=== PATIENT | female | born 1955 | race Two or more races ===

== ENCOUNTER → 2022-08-29 | Day surgery (SDC) | payer MEDICARE, OTHER ==
--- NOTE | 2022-09-04 08:59 | MM ---
Reason for Exam: Post Procedure Mammogram. Patient History: Menarche at age 16. First Full-Term at age 26. Postmenopausal. Risk Values: Anamika 5 year model risk: 1.7%. NCI Lifetime model risk: 5.6%. Tissue Density: Left: The breast tissue is heterogeneously dense. This may lower the sensitivity of mammography. Pathology Description: Location: 9 o'clock. Marker Left Behind. Needle Type: Mammotome Cores: 6 Gauge: 13 The procedure of ultrasound guided core biopsy was explained to the patient. Benefits, alternatives, and risks were discussed. An informed consent was then obtained. The patient was placed in supine positioning for imaging and for the procedure. The overlying skin was prepped and draped in usual sterile fashion. Lidocaine was used as anesthetic into the skin followed by 0.5% lidocaine/epinephrine into the subcutaneous tissue up to area of concern in the 9:00 left breast. Under ultrasound guidance, a 13-gauge vacuum-assisted mammotome Elite biopsy gun was used to obtain 6 core samples. Following this, a Hydromark coil clip was left in lesion. The patient tolerated the procedure well without any immediate complication. The patient was kept in the radiology department for short stay after the procedure and then discharged home in stable condition. Postprocedure mammogram: The patient was transferred to mammography for physician ordered post procedure mammogram for clip placement verification. The clip is at the site of mammographic mass. IMPRESSION: Successful, uncomplicated ultrasound guided core biopsy of suspicious area in the 9:00 left breast; full pathology results to follow. Pathology Results: Result: Malignant, Invasive ductal carcinoma. LEFT BREAST, NINE O'CLOCK, ULTRASOUND GUIDED NEEDLE CORE BIOPSY: Invasive poorly differentiated ductal carcinoma (Grade 3). See Surgical Pathology Cancer Case Summary. Overall Assessment: Malignant Assessment: MG diagnostic mammo LT wo CAD. - Left: Known biopsy proven malignancy, BI-RAD 6. Management: Surgical Consultation of the left breast. Electronically signed and approved by: Linsey Sosa M.D. Radiologist JENN
== END ==
LOC: RADUSWWP 12:24
PROVIDERS: ATTEND Surgery
DX: C50.912 Malignant neoplasm of unspecified site of left female breast (principal); Z78.0 Asymptomatic menopausal state
CPT/HCPCS: 88305; 88342; 88341; 77065; 19083; A4648

== ENCOUNTER → 2022-09-05 | Outpatient (CLI) | payer MEDICARE, OTHER ==
--- NOTE | 2022-09-05 12:54 | P.GSHP ---
History of Present Illness H&P Date: 09/05/22 Chief Complaint: left breast poorly differentiated invasive cancer Cherelle is a 67 year old female seen with her sister regarding a biopsy proven left breast invasive cancer. She had a routine mammogram which led to the following work-up. She had a left breast mammogram on 07-11-22, and an ultrasound done on 08-08-22 this led to a left breast core biopsy. The patient does not feel anything of concern in either breast. She is not complaining of any nipple discharge or skin changes. She's not had any recent trauma or infection in the breast. She has never had surgery on her breast. Her last mammogram was 12 years ago. Caffeine:occasional nicotine: none chocolate: none BCP: none hormones: none Family History: none Hormonal History: menarche: 15 , breast fed: yes, age at first : 26 menopause: 54 hormones: none Surgical History: none Medical History: hypothyroid diabetic metformin HTN Social History: nicotine: none alcoholL none drugs: none - Constitutional Constitutional: Denies chills, Denies fever - EENT Eyes: denies blurred vision, denies pain Ears: deny: decreased hearing, tinnitus Ears, nose, mouth and throat: Denies headache, Denies sore throat - Breasts Breasts: bilateral: as per HPI - Cardiovascular Cardiovascular: Denies chest pain, Denies shortness of breath - Respiratory Respiratory: Denies cough, Denies 7 - Gastrointestinal Gastrointestinal: Denies abdominal pain, Denies diarrhea, Denies nausea, Denies vomiting - Genitourinary (Female) Genitourinary: Denies dysuria, Denies hematuria - Menstruation Menstruation: Reports postmenopausal - Musculoskeletal Musculoskeletal: Denies myalgias - Integumentary Integumentary: Denies pruritus, Denies rash - Neurological Neurological: Denies numbness, Denies weakness - Psychiatric Psychiatric: Denies anxiety, Denies depression - Endocrine Endocrine: Reports as per HPI - Hematologic/Lymphatic Comment: none - Allergic/Immunologic Allergic/Immunologic: Reports as per HPI Past Medical History Past Medical History: Diabetes Mellitus, Hypertension, Thyroid Disorder History of Any Multi-Drug Resistant Organisms: None Reported Past Surgical History: No Surgical Hx Reported Additional Past Surgical History / Comment(s): colonoscopy 2020? Past Anesthesia/Blood Transfusion Reactions: No Reported Reaction Past Psychological History: No Psychological Hx Reported Smoking Status: Never smoker Past Alcohol Use History: None Reported Past Drug Use History: None Reported Medications and Allergies Home Medications Medication Instructions Recorded Confirmed Type Atorvastatin [Lipitor] 40 mg PO HS 08/14/22 09/05/22 History Levothyroxine Sodium [Synthroid] 100 mcg PO DAILY 08/14/22 09/05/22 History glyBURIDE [Diabeta] 2.5 mg PO AC-BRKFST 08/14/22 09/05/22 History lisinopriL [Prinivil] 10 mg PO DAILY 08/14/22 09/05/22 History metFORMIN HCL [Glucophage] 1,000 mg PO BID 08/14/22 09/05/22 History Allergies Allergy/AdvReac Type Severity Reaction Status Date / Time No Known Allergies Allergy Verified 09/05/22 11:56 Surgical - Exam - General no distress - Eyes normal ocular movement - ENT no hearing loss - Neck trachea midline - Respiratory normal respiratory effort, clear to auscultation - Cardiovascular Rhythm: regular Heart Sounds: normal: S1, S2 - Abdomen Abdomen: soft, non tender, no guarding, no rigid, no rebound - Integumentary normal turgor - Neurologic no disoriented, no combative - Musculoskeletal normal gait - Psychiatric oriented to time, oriented to person, oriented to place, speech is normal, memory intact Breast Exam: BRA: 32 C inspection: bilateral grade 2 ptosis palpation: right breast: Multi-positional exam fibrocystic changes no dominant masses or nodules of concern Right axilla: No adenopathy of concern Left breast: Ecchymosis at biopsy site fullness in the 11 o'clock position in the periareolar region no discrete dominant masses or nodules of concern otherwise Left axilla: No adenopathy of concern Results Mammogram reviewed personally with Dr. Sosa Assessment and Plan Assessment: Impression: Invasive ductal carcinoma left breast ER/MA negative HER-2 positive grade 3 Dense breast Plan: Bilateral breast MRI Appointment medical oncology secondary to HER-2 positive Presentation of case at tumor board The patient is seen here with her sister. CC: DR. Murray
== END ==
LOC: WWCWWP 11:30
PROVIDERS: ATTEND Surgery
DX: D05.12 Intraductal carcinoma in situ of left breast (principal); E03.9 Hypothyroidism, unspecified; E11.9 Type 2 diabetes mellitus without complications; I10 Essential (primary) hypertension; Z79.84 Long term (current) use of oral hypoglycemic drugs; Z80.3 Family history of malignant neoplasm of breast; Z79.890 Hormone replacement therapy

== ENCOUNTER → 2022-09-09 | Outpatient (CLI) | payer MEDICARE, OTHER ==
--- NOTE | 2022-09-12 13:15 | BMR ---
EXAMINATION TYPE: MR breast BILAT wo/w con DATE OF EXAM: 09/09/2022 COMPARISON: Outside screening mammogram April 11, 2022 BI-RADS 0. Diagnostic left breast mammogram July 11, 2022 BI-RADS 0. Left breast diagnostic ultrasound August 08, 2022 BI-RADS 4. HISTORY: Malignant neoplasm of breast invasive poorly differentiated ductal carcinoma grade 3 on ultr asound guided left breast biopsy August 29, 2022. TECHNIQUE: A series of fat and water weighted images in the long and short axis views of both breasts are obtained in conjunction with dynamic contrast MRI with subtraction technique. The patient was i njected with 6.5 mL intravenous Gadavist gadolinium contrast. Three-dimensional and additional post processing imaging is created on independent workstation and reviewed during official interpretation of this study. FINDINGS: Heterogeneously dense fibroglandular tissue is redemonstrated bilaterally. Benign-appearing bilateral axillary lymph nodes are seen. No concerning axillary adenopathy. No suspicious focal flui d collection or cystic change in either breast. Dynamic postcontrast imaging shows minimal background enhancement bilaterally. With regards to the right breast there is no abnormal skin thickening seen. No pathologic enhancement or enhancing masses are identified. The chest wall is intact. With regards to the left breast there is artifact from biopsy clip seen image 106 series 401. There i s focal enhancing oval-shaped mass along the lateral aspect of the biopsy clip with circumscribed mar gins measuring 10 x 4 mm image 633 series 701 at approximate 9:00 position left breast corresponding to biopsy-proven malignancy. Computer gives measurements of 7 x 4 x 7 mm with dynamic postcontrast im aging showing majority of benign gradual type enhancement. Slightly larger measurements are present o n corresponding ultrasound No additional enhancing masses or suspicious enhancement in the left breas t. No skin thickening is seen. Chest wall is intact. IMPRESSION: Biopsy-proven malignancy in the left breast as detailed above. No multicentric disease or MRI evidence for invasive malignancy in the right breast. No abnormal adenopathy seen. BI-RADS 2 benign findings right breast BI-RADS 6 biopsy-proven malignancy left breast Recommendation:. Appropriate surgical and oncologic management of newly diagnosed left breast efra ruiz
== END | disposition home or self-care (01) ==
LOC: RADMRIMAIN 21:15
PROVIDERS: ATTEND Surgery
DX: C50.312 Malignant neoplasm of lower-inner quadrant of left female breast (principal)
CPT/HCPCS: C8908; A9585; 77049

== ENCOUNTER → 2022-10-04 | Outpatient (CLI) | payer MEDICARE, OTHER ==
--- NOTE | 2022-10-04 11:17 | P.PN ---
Subjective Progress Note Date: 10/04/22 left breast poorly differentiated invasive cancer Cherelle is a 67 year old female seen with her sister regarding a biopsy proven left breast invasive cancer. She had a routine mammogram which led to the following work-up. She had a left breast mammogram on 07-11-22, and an ultrasound done on 08-08-22 this led to a left breast core biopsy. The patient does not feel anything of concern in either breast. She is not complaining of any nipple discharge or skin changes. She's not had any recent trauma or infection in the breast. She has never had surgery on her breast. Her last mammogram was 1 years ago. She had a breast MRI performed on 5822. This revealed no lesions of concern in the right breast. In the left breast there was a focal enhancing mass along the lateral aspect of the biopsy clip with circumscribed margins measuring 10 x 4 mm. This was at the approximate 9 o'clock position corresponding to biopsy- proven malignancy. Her case was presented at tumor board on 5922. She also saw Dr. Jaime Jama at his [place] office and no neoadjuvant treatment was recommended. The recommendation was for a lumpectomy with axillary node biopsy. Caffeine:occasional nicotine: none chocolate: none BCP: none hormones: none Family History: none Hormonal History: menarche: 15 , breast fed: yes, age at first : 26 menopause: 54 hormones: none Surgical History: none Medical History: hypothyroid diabetic metformin HTN Social History: nicotine: none alcoholL none drugs: none - Constitutional Constitutional: Denies chills, Denies fever - EENT Eyes: denies blurred vision, denies pain Ears: deny: decreased hearing, tinnitus Ears, nose, mouth and throat: Denies headache, Denies sore throat - Breasts Breasts: bilateral: as per HPI - Cardiovascular Cardiovascular: Denies chest pain, Denies shortness of breath - Respiratory Respiratory: Denies cough - Gastrointestinal Gastrointestinal: Denies abdominal pain, Denies diarrhea, Denies nausea, Denies vomiting - Genitourinary (Female) Genitourinary: Denies dysuria, Denies hematuria - Menstruation Menstruation: Reports postmenopausal - Musculoskeletal Musculoskeletal: Denies myalgias - Integumentary Integumentary: Denies pruritus, Denies rash - Neurological Neurological: Denies numbness, Denies weakness - Psychiatric Psychiatric: Denies anxiety, Denies depression - Endocrine Endocrine: Reports as per HPI - Hematologic/Lymphatic Comment: none - Allergic/Immunologic Allergic/Immunologic: Reports as per HPI Past Medical History Past Medical History: Diabetes Mellitus, Hypertension, Thyroid Disorder History of Any Multi-Drug Resistant Organisms: None Reported Past Surgical History: No Surgical Hx Reported Additional Past Surgical History / Comment(s): colonoscopy 2020? Past Anesthesia/Blood Transfusion Reactions: No Reported Reaction Past Psychological History: No Psychological Hx Reported Smoking Status: Never smoker Past Alcohol Use History: None Reported Past Drug Use History: None Reported Medications and Allergies Home Medications Medication Instructions Recorded Confirmed Type Atorvastatin [Lipitor] 40 mg PO HS 08/14/22 09/05/22 History Levothyroxine Sodium [Synthroid] 100 mcg PO DAILY 08/14/22 09/05/22 History glyBURIDE [Diabeta] 2.5 mg PO AC-BRKFST 08/14/22 09/05/22 History lisinopriL [Prinivil] 10 mg PO DAILY 08/14/22 09/05/22 History metFORMIN HCL [Glucophage] 1,000 mg PO BID 08/14/22 09/05/22 History Allergies Allergy/AdvReac Type Severity Reaction Status Date / Time No Known Allergies Allergy Verified 09/05/22 11:56 Objective - Constitutional General appearance: Present: cooperative - EENT Eyes: Present: EOMI ENT: Present: hearing grossly normal - Neck Neck: Present: normal ROM - Respiratory Respiratory: bilateral: CTA - Cardiovascular Rhythm: regular Heart sounds: normal: S1, S2 - Gastrointestinal General gastrointestinal: Present: soft - Integumentary Integumentary: Present: normal turgor - Musculoskeletal Musculoskeletal: Present: gait normal - Psychiatric Psychiatric: Present: A&O x's 3, appropriate affect, intact judgment & insight - Additional findings Additional findings: Breast Exam: BRA: 32 C inspection: bilateral grade 2 ptosis palpation: right breast: Multi-positional exam fibrocystic changes no dominant masses or nodules of concern Right axilla: No adenopathy of concern Left breast: Ecchymosis at biopsy site fullness in the 11 o'clock position in the periareolar region no discrete dominant masses or nodules of concern otherwise Left axilla: No adenopathy of concern Assessment and Plan Assessment: Impression: Invasive ductal carcinoma left breast ER/CO negative HER-2 positive grade 3 Dense breast Plan: Bilateral breast MRI reviewed Appointment medical oncology secondary to HER-2 positive; done and no neoadjuvant recommended Presentation of case at tumor board done 09-10-[address] Murray left breast localization lumpectomy, left breast sentinel node injection, left breast sentinel node biopsy, possible left axillary node dissection, possible onco-plastic tissue transfer The patient is seen here with her sister. Risks and benefits of the surgical procedure discussed with the patient and her sister. Risks include but are not limited to bleeding, infection, reaction to the anesthetic. If the section were to have positive margins then further resection may be necessary. We have discussed the option of mastectomy versus lumpectomy plus radiation. At this time the patient would prefer lumpectomy. We have also discussed sentinel node biopsy and axillary node dissection. Risks include but are not limited to bleeding, infection, reaction to the anesthetic. Possible lymphedema or decreased sensation to the inner arm. Additionally possible injury to the thoracodorsal and long thoracic nerves which could result in wing scapula. The patient and her sister understand and wish to proceed. CC: DR. Murray
== END ==
LOC: WWCWWP 10:20
PROVIDERS: ATTEND Surgery
DX: C50.912 Malignant neoplasm of unspecified site of left female breast (principal); E11.9 Type 2 diabetes mellitus without complications; I10 Essential (primary) hypertension; E03.9 Hypothyroidism, unspecified; Z79.84 Long term (current) use of oral hypoglycemic drugs; Z17.1 Estrogen receptor negative status [ER-]

== ENCOUNTER → 2022-10-04 | Outpatient (CLI) | payer MEDICARE, OTHER ==
--- NOTE | 2022-10-04 10:35 | XR ---
EXAMINATION TYPE: XR chest 2V DATE OF EXAM: 10/04/2022 COMPARISON: NONE HISTORY: Shortness of breath TECHNIQUE: Frontal and lateral views of the chest are obtained. FINDINGS: Scattered senescent parenchymal changes noted. Hyperinflation compatible with COPD. No evidence for infiltrate. No evidence for atelectasis. Heart size is stable. Mediastinal structures are stable and grossly unremarkable. No evidence for hilar prominence. Degenerative changes dorsal spine. IMPRESSION: 1. No evidence for acute pulmonary disease.
== END | disposition home or self-care (01) ==
LOC: RADXRMAIN 09:42
PROVIDERS: ATTEND Family Medicine
DX: Z01.818 Encounter for other preprocedural examination (principal); R06.02 Shortness of breath
CPT/HCPCS: 71046

== ENCOUNTER → 2022-10-04 | Outpatient (CLI) | payer MEDICARE, OTHER ==
[2022-10-04 16:48] LABS: African American GFR (CKD) 59.7 (60.0-200.0); Albumin 4.4 g/dL (3.8-4.9); Albumin/Globulin Ratio 1.76 (1.60-3.17); Anion Gap 13.9 mmol/L (10.00-18.00); BUN/Creat Ratio 14.73 Ratio (12.00-20.00); Blood Urea Nitrogen 16.2 mg/dL (9.0-27.0); Calcium 9.7 mg/dL (8.7-10.3); Carbon Dioxide 24.1 mmol/L (20.0-27.5); Globulin 2.5 g/dL (1.6-3.3); Non-African American GFR(CKD) 51.5 (60.0-200.0); Potassium 4.6 mmol/L (3.5-5.5); Total Bilirubin 0.2 mg/dL (0.30-1.20); Total Protein 6.9 g/dL (6.2-8.2)
[2022-10-04 16:50] LABS: INR 0.9 (0.90-1.11); Prothrombin Time 10.2 sec (9.9-11.9)
== END | disposition home or self-care (01) ==
LOC: LABWHC1 09:57
PROVIDERS: ATTEND Family Medicine
DX: Z01.812 Encounter for preprocedural laboratory examination (principal); C50.912 Malignant neoplasm of unspecified site of left female breast; E11.65 Type 2 diabetes mellitus with hyperglycemia
CPT/HCPCS: 36415; 80053; 85027; 85610

== ENCOUNTER 2022-10-08 12:38 | Day surgery (SDC) | payer MEDICARE, OTHER ==
[2022-10-07 09:23] VITALS: BMI 23.3
[~2022-10-08 12:38] MED LIST: ALPRAZolam 0.25 MG TAB PO PRN; DEXAMETHASONE SOD PHOSPHATE 4 MG/ML 1 ML VIAL IV ONE; HEPARIN SODIUM,PORCINE/PF 5,000 UNIT/0.5 ML SYRINGE SQ PRN; HYDROmorphone 0.5 MG/0.5 ML SYRINGE IVP PRN; LACTATED RINGERS 1,000 ML IV SCH; ONDANSETRON 4 MG/2 ML VIAL IVP ONE; Pre Op ABX Message 1 EACH MISC MISCELLANE ONE
[2022-10-08 13:03] VITALS: RESP 16
[2022-10-08 13:25] LABS: Glucose,Whole Blood 127 mg/dL (70-110)
[2022-10-08 14:03] LABS: HCT 34.9 % (34.0-46.0); HGB 10.9 gm/dL (11.4-16.0); MCH 29.2 pg (25.0-35.0); MCHC 31.3 g/dL (31.0-37.0); MCV 93.2 fL (80.0-100.0); Mean Platelet Volume 8.4; Platelet Count 166 k/uL (150-450); RBC 3.75 m/uL (3.80-5.40); WBC 7.3 k/uL (3.8-10.6)
[2022-10-08] MEDS ORDERED: LIDOCAINE 1% INJ 10MG/ML (20 ML MDV) SQ ONE ×2 (14:25→16:29)
[2022-10-08] MEDS ORDERED: SUCCINYLCHOLINE CHLORIDE 200 MG/10 ML VIAL IV ONE (14:53)
[2022-10-08] MEDS ORDERED: PROPOFOL 10 MG/ML 20 ML VIAL IV ONE (14:53)
[2022-10-08] MEDS ORDERED: KETOROLAC 15 MG/ML 1 ML VIAL ONE (14:53)
[2022-10-08] MEDS ORDERED: LIDOCAINE 2% INJ 20 MG/ML (2 ML VIAL) ONE (14:53)
[2022-10-08] MEDS ORDERED: fentaNYL (PF) 50 MCG/ML 2 ML AMP ONE (14:53)
[2022-10-08] MEDS ORDERED: MIDAZOLAM 2 MG/2 ML VIAL ONE (14:53)
--- NOTE | 2022-10-08 15:05 | P.NAPBC ---
NAPBC Queries - NAPBC Queries Was patient's case review presented at [facility] tumor board? If no, comment.: Yes Was patient's pathology reviewed at [facility]? If no, comment.: Yes Was breast conservation surgery offered? If no, comment.: Yes Was sentinel node biopsy offered? If no, comment.: Yes Was diagnosis confirmed by percutaneous core biopsy? If no, comment.: Yes Is patient mastectomy patient?: No Was a preop referral to reconstructive surgeon offered?: No Clinical Stage: [id number] left breast invasive ductal cancer
--- NOTE | 2022-10-08 15:12 | NM ---
EXAMINATION TYPE: NM sentinel node injection DATE OF EXAM: 10/08/2022 COMPARISON: 08/29/2022 CLINICAL INDICATION: Female, 67 years old with history of LEFT BREAST CA; TECHNIQUE AND FINDINGS: The procedure of sentinel lymph node injection was explained to the patient. The benefits, alternatives, and risks were discussed. An informed consent was then obtained. Overlying skin is cleaned with sterile alcohol. Following this, 514 uCi Tc99m Tilmanocept was inject ed in the upper outer aspect of the left nipple intradermally. The patient tolerated the procedure well without any immediate complication. The patient was kept in the radiology department for short stay after the procedure and then taken to surgery for surgical p rocedure what is presumed intraoperative gamma probe will be used for sentinel lymph node detection. IMPRESSION: Left breast radiotracer injection for sentinel node localization as above.
[2022-10-08] MEDS ORDERED: BUPIVACAINE (PF) 0.5% 30 ML VIAL SQ ONE (16:23)
--- NOTE | 2022-10-08 16:29 | P.OP ---
Date of Procedure: 10/08/22 Preoperative Diagnosis: Left breast invasive ductal carcinoma Postoperative Diagnosis: Same Procedure(s) Performed: Left breast needle localization lumpectomy, bronchoplasty tissue transfer 23 cm, sentinel node biopsy Anesthesia: ENRIQUE Surgeon: Kimberley Vera Estimated Blood Loss (ml): 10 IV fluids (ml): 600 Pathology: other (Breast tissue, axillary node) Condition: stable Disposition: same day Indications for Procedure: Left breast invasive ductal carcinoma Operative Findings: Fibrofatty breast tissue Description of Procedure: The patient is a 59-year-old female diagnosed with a left breast invasive ductal carcinoma. She was seen first in the radiology department where needle localization of the lesion was performed. The radioactive isotope was injected in the periareolar region on the left. The patient was then brought up to the operative suite. Following induction of anesthesia the neoprobe was used to interrogate the axilla and radioactivity was identified. The left breast and axilla were prepped and draped in a sterile fashion. Using the neoprobe to find the area of greatest radioactivity incision was made down to the radioactive lymph node. 2 sentinel nodes were identified and removed. The first one had a 10 second count of 1367, the second had a 10 second count of 1122. The background count was 5. The wound was well irrigated. The deep tissues were closed using 3-0 Vicryl suture. The skin was closed using 4-0 Monocryl. The area of the breast was approached. An incision was made and carried down to the shaft of the needle. Surrounding tissue was excised. The defect was 5 cm x 2 cm. The specimen was painted for orientation. Radiograph revealed the area of concern had been removed. A superior pillar 5 x 1 cm was performed, and inferior pillar 4 x 2 cm was performed. Total tissue transfer was 23 cm. After this titanium clips were placed and Surgicel in powder form was placed in the defect. Following this the subcutaneous tissue was closed using 3-0 Vicryl suture. This was followed by 4-0 Monocryl subcuticular closure. 20 mL of 1% lidocaine was injected into the area. Steri-Strips were applied. The patient tolerated procedure in stable condition. All instrument and sponge counts were correct at the end of the case.
[2022-10-08 16:49] VITALS: TEMP 97.4
[2022-10-08 17:08] LABS: Glucose,Whole Blood 163 mg/dL (70-110)
[2022-10-08 18:00] VITALS: BP 164/76; PULSE 72
--- NOTE | 2022-10-15 08:55 | MM ---
Pathology Description: Approach: Medial to Lateral Needle Type: 7 cm Kopan The procedure of needle localization with wire placement and than surgical excision was explained to the patient. Benefits, alternatives, and risks were discussed. An informed consent was then obtained. The shortest pathway for procedure was chosen. Shortest pathway was a medial approach. The overlying skin was prepped and draped in usual sterile fashion. Lidocaine was used as anesthetic into the skin and subcutaneous tissue up to the level of area of concern. A 7 cm Kopan's needle was used. It was placed via a medial approach under mammographic guidance. Subsequent 90 degrees mammogram show the needle to be in satisfactory position relative to the targeted area. At this point, wire was placed and the needle was withdrawn. The wire was fixed to patient's skin. Images were marked for surgeon. The patient tolerated the procedure well without any immediate complication. The patient was kept in the radiology department for short stay after the procedure and then taken to surgery for surgical excision. Targeted clip, mass, and wire are identified in specimen mammogram. The patient was kept in hospital for short stay after the procedure and then discharged home in stable condition. IMPRESSION: Successful, uncomplicated needle localization with wire placement and surgical excision of biopsy-proven medial left breast cancer. Full pathology results to follow. Pathology Results: Result: Malignant, Invasive ductal carcinoma. A. SENTINEL LYMPH NODE LEFT #1: Lymph node negative for metastasis. CK7 and SUSANNA immunoperoxidase stains performed on block A1 are confirmatory (controls appropriate). B. LEFT AXILLARY CONTENTS: Lymph node negative for metastasis, benign fibroadipose tissue and breast tissue with fibrocystic changes. C. SENTINEL LYMPH NODE LEFT #2: Benign breast tissue with fibrocystic changes including microcalcifications. No lymph node is identified. D. LEFT BREAST, LUMPECTOMY: Invasive poorly differentiated ductal carcinoma (Grade 3) and high grade DCIS, margins negative. See Surgical Pathology Cancer Case Summary. Overall Assessment: Malignant Management: Surgical Consultation of the left breast. Electronically signed and approved by: Linsey Sosa M.D. Radiologist
== END 2022-10-08 18:16 | disposition home or self-care (01) ==
LOC: OR 12:38
PROVIDERS: ATTEND Surgery
DX: C50.212 Malignant neoplasm of upper-inner quadrant of left female breast (principal); I10 Essential (primary) hypertension; E78.5 Hyperlipidemia, unspecified; E11.9 Type 2 diabetes mellitus without complications; E03.9 Hypothyroidism, unspecified; Z79.84 Long term (current) use of oral hypoglycemic drugs; Z79.890 Hormone replacement therapy; Z79.899 Other long term (current) drug therapy; Z78.0 Asymptomatic menopausal state
CPT/HCPCS: 19301; 14001; 38525; 38792; 85027; 88342; 88307; 88341; 76098; C1819; A9520; J2250; J0330; J1100; J2405; J2001 ×2; J3010; J1885; J2704; J1170

== ENCOUNTER → 2022-10-16 | Outpatient (CLI) | payer MEDICARE, OTHER ==
--- NOTE | 2022-10-16 11:21 | P.PN ---
Progress Note - Text Progress Note Date: 10/16/22 Cherelle is a 67 year old status post left breast lumpectomy and SNB on 10-08-22. The lesions was 8 mm invasive ductal poorly differentiated cancer. Margins were negative. Closest margin 2 mm from posterior margin 2 nodes (-) for caner. Examination: Lungs: Clear Heart: Regular rate and rhythm Incisions clean and dry Impression: Patient doing well Plan: Appointment radiation oncology Appointment medical oncology Follow-up here in 4 months CC: Dr. Dipak Stauffer
[2022-10-16 11:23] VITALS: BP 157/87; PULSE 75; RESP 16; TEMP 97.9
== END ==
LOC: WWCWWP 10:43
PROVIDERS: ATTEND Surgery
DX: Z90.12 Acquired absence of left breast and nipple (principal)

== ENCOUNTER → 2023-02-14 | Outpatient (CLI) | payer MEDICARE, OTHER ==
[2023-02-14 13:08] VITALS: BP 148/72; PULSE 69; RESP 17; TEMP 98.3
--- NOTE | 2023-02-14 13:14 | P.PN ---
Subjective Progress Note Date: 02/14/23 left breast poorly differentiated invasive cancer Cherelle is a 67 year old female seen with her sister regarding a biopsy proven left breast invasive cancer. She had a routine mammogram which led to the following work-up. She had a left breast mammogram on 07-11-22, and an ultrasound done on 08-08-22 this led to a left breast core biopsy. The patient does not feel anything of concern in either breast. She is not complaining of any nipple discharge or skin changes. She's not had any recent trauma or infection in the breast. She has never had surgery on her breast. Her last mammogram was 1 years ago. She had a breast MRI performed on 5822. This revealed no lesions of concern in the right breast. In the left breast there was a focal enhancing mass along the lateral aspect of the biopsy clip with circumscribed margins measuring 10 x 4 mm. This was at the approximate 9 o'clock position corresponding to biopsy- proven malignancy. ER (-), SC (-), HER-2 positive. Grade 3 invasive ductal carcinoma. Her case was presented at tumor board on 5922. She also saw Dr. Jaime Jama at his [place] office and no neoadjuvant treatment was recommended. The recommendation was for a lumpectomy with axillary node biopsy. She underwent a left breast lumpectomy and sentinel node biopsy on 6622. The lesion was an 8 mm invasive ductal poorly differentiated cancer. Margins were negative. 2 nodes were removed both negative for cancer. She has seen by Dr. Jaime Jama at [place] and she has not had any adjuvant treatment at this time. They have not seen a radiation oncologist. At this time the patient is not complaining of any new lumps masses or nodules of concern in either breast. Caffeine:occasional nicotine: none chocolate: none BCP: none hormones: none Family History: none Hormonal History: menarche: 15 , breast fed: yes, age at first : 26 menopause: 54 hormones: none Surgical History: Left breast lumpectomy and sentinel node biopsy Medical History: hypothyroid diabetic metformin HTN Social History: nicotine: none alcoholL none drugs: none - Constitutional Constitutional: Denies chills, Denies fever - EENT Eyes: denies blurred vision, denies pain Ears: deny: decreased hearing, tinnitus Ears, nose, mouth and throat: Denies headache, Denies sore throat - Breasts Breasts: bilateral: as per HPI - Cardiovascular Cardiovascular: Denies chest pain, Denies shortness of breath - Respiratory Respiratory: Denies cough - Gastrointestinal Gastrointestinal: Denies abdominal pain, Denies diarrhea, Denies nausea, Denies vomiting - Genitourinary (Female) Genitourinary: Denies dysuria, Denies hematuria - Menstruation Menstruation: Reports postmenopausal - Musculoskeletal Musculoskeletal: Denies myalgias - Integumentary Integumentary: Denies pruritus, Denies rash - Neurological Neurological: Denies numbness, Denies weakness - Psychiatric Psychiatric: Denies anxiety, Denies depression - Endocrine Endocrine: Reports as per HPI - Hematologic/Lymphatic Comment: none - Allergic/Immunologic Allergic/Immunologic: Reports as per HPI Past Medical History Past Medical History: Diabetes Mellitus, Hypertension, Thyroid Disorder History of Any Multi-Drug Resistant Organisms: None Reported Past Surgical History: No Surgical Hx Reported Additional Past Surgical History / Comment(s): colonoscopy 2020? Past Anesthesia/Blood Transfusion Reactions: No Reported Reaction Past Psychological History: No Psychological Hx Reported Smoking Status: Never smoker Past Alcohol Use History: None Reported Past Drug Use History: None Reported Medications and Allergies Home Medications Medication Instructions Recorded Confirmed Type Atorvastatin [Lipitor] 40 mg PO HS 08/14/22 09/05/22 History Levothyroxine Sodium [Synthroid] 100 mcg PO DAILY 08/14/22 09/05/22 History glyBURIDE [Diabeta] 2.5 mg PO [id number] 08/14/22 09/05/22 History lisinopriL [Prinivil] 10 mg PO DAILY 08/14/22 09/05/22 History metFORMIN HCL [Glucophage] 1,000 mg PO BID 08/14/22 09/05/22 History Allergies Allergy/AdvReac Type Severity Reaction Status Date / Time No Known Allergies Allergy Verified 09/05/22 11:56 Objective - Constitutional General appearance: Present: cooperative - EENT Eyes: Present: EOMI ENT: Present: hearing grossly normal - Neck Neck: Present: normal ROM - Respiratory Respiratory: bilateral: CTA - Cardiovascular Heart sounds: normal: S1, S2 - Gastrointestinal General gastrointestinal: Present: soft - Integumentary Integumentary: Present: normal turgor - Musculoskeletal Musculoskeletal: Present: gait normal - Psychiatric Psychiatric: Present: A&O x's 3, appropriate affect, intact judgment & insight - Additional findings Additional findings: Breast Exam: 36 C/D Inspection: Well-healed scar left breast from prior lumpectomy, bilateral grade 2 ptosis Palpation: Right breast: Multi-positional exam no dominant masses or nodules of concern Right axilla: No adenopathy of concern Left breast: Well-healed scar from prior surgery no dominant masses or nodules of concern Left axilla: No adenopathy of concern Assessment and Plan Assessment: Impression: hypothyroid diabetic metformin HTN She is status post left breast lumpectomy and sentinel node biopsy on Plan: Appointment radiation oncology she will see them today Continue to follow with Dr. Jama Follow up here in 4 months Bilateral mammogram in July 2023 with examination at that time CC: Dr. Murray
== END ==
LOC: WWCWWP 12:24
PROVIDERS: ATTEND Surgery
DX: C50.812 Malignant neoplasm of overlapping sites of left female breast (principal); E03.9 Hypothyroidism, unspecified; E11.9 Type 2 diabetes mellitus without complications; I10 Essential (primary) hypertension; Z79.84 Long term (current) use of oral hypoglycemic drugs; Z79.890 Hormone replacement therapy; Z80.3 Family history of malignant neoplasm of breast; Z85.3 Personal history of malignant neoplasm of breast; Z90.12 Acquired absence of left breast and nipple